=== PATIENT | female | born 1955 | race Caucasian/White ===

== ENCOUNTER 2017-02-18 09:48 | Day surgery (SDC) | payer BC, OTHER ==
[~2017-02-18] VITALS: Ht 176.5 cm; Wt 76.5 kg
[2017-02-18] MEDS ORDERED: METO25TA35 PO (10:17)
[2017-02-18] MEDS ORDERED: HYDR200T PO (10:17)
[2017-02-18] MEDS ORDERED: GABA300C10 PO (10:17)
[2017-02-18] MEDS ORDERED: TRAM50TA2 PO (10:17)
[2017-02-18] MEDS ORDERED: CLON0.5T PO (10:17)
[2017-02-18] MEDS ORDERED: LOSA50TA6 PO (10:17)
[2017-02-18] MEDS ORDERED: ASPI-496 PO (10:17)
[2017-02-18 10:36] VITALS: BP 145/86
[2017-02-18] MEDS ORDERED: LACTATED RINGERS 1,000 ML IV SCH (10:54)
[2017-02-18] MEDS ORDERED: HYDROmorphone 1 MG/ML, 1ML IV PRN (11:30)
[2017-02-18] MEDS ORDERED: hydrALAzine 20 MG/ML, 1ML IV PRN (11:30)
[2017-02-18] MEDS ORDERED: ACETAMINOPHEN 325 MG TABLET PO PRN (11:30)
[2017-02-18] MEDS ORDERED: MEPERIDINE/PF 25MG/0.5ML IVPush PRN (11:30)
[2017-02-18] MEDS ORDERED: KETOROLAC 30 MG/1 ML IV PRN (11:30)
[2017-02-18] MEDS ORDERED: OXYcodone 5 MG/5 ML ORAL.SOL UDC PO PRN (11:30)
[2017-02-18] MEDS ORDERED: MIDAZOLAM 1 MG/ML, 2ML IV PRN (11:30)
[2017-02-18] MEDS ORDERED: FENTANYL PF 100 MCG/2ML IV PRN (11:30)
[2017-02-18] MEDS ORDERED: PROMETHAZINE 25 MG/ML, 1ML IV PRN (11:30)
[2017-02-18] MEDS ORDERED: LABETALOL 5MG/ML, 20ML IV PRN (11:30)
[2017-02-18] MEDS ORDERED: ONDANSETRON 2MG/ML, 2ML IVPush PRN (11:30)
[2017-02-18] MEDS ORDERED: HYDROcodone/APAP 7.5-325MG/15ML UDC PO PRN (11:30)
[2017-02-18 11:33] LABS: BLOOD UREA NITROGEN 10 mg/dL (7-18)
[2017-02-18 11:36] LABS: ASPARTATE AMINO TRANSFERASE 20 U/L (15-37)
[2017-02-18] MEDS ORDERED: PROPOFOL 10 MG/ML, 20ML ONE (12:43)
== END 2017-02-18 14:15 ==
LOC: OUT 09:48
DX: Z09 Encounter for follow-up examination after completed treatment for conditions other than malignant neoplasm (principal); K63.89 Other specified diseases of intestine; I10 Essential (primary) hypertension; G89.29 Other chronic pain; Z87.19 Personal history of other diseases of the digestive system
CPT/HCPCS: 36415; 45346; 80053; 93005; J2704; J7120

== ENCOUNTER 2020-11-13 07:35 | Day surgery (SDC) | payer BC ==
[~2020-11-13] VITALS: Ht 175.3 cm; Wt 72.7 kg
[~2020-11-13 07:35] MED LIST: ASPI-496 PO; CLON0.5T PO; GABA300C10 PO; HYDR200T72 PO; LOSA50TA14 PO; METO25TA35 PO; TRAM50TA2 PO
[2020-11-13 08:07] VITALS: BP 150/87
[2020-11-13] MEDS ORDERED: METO25TA91 PO (08:15)
[2020-11-13] MEDS ORDERED: ASCO100018 PO (08:18)
[2020-11-13] MEDS ORDERED: LANS30CA PO (08:18)
[2020-11-13] MEDS ORDERED: AMLO-150 PO (08:18)
[2020-11-13] MEDS ORDERED: CHOL10003 PO (08:18)
[2020-11-13] MEDS ORDERED: TRAM1TAB6 PO (08:18)
[2020-11-13] MEDS ORDERED: ERGO500017 PO (08:18)
[2020-11-13] MEDS ORDERED: MIDAZOLAM 1 MG/ML, 5ML ONE (08:34)
[2020-11-13] MEDS ORDERED: LIDOCAINE 1%, 20ML ONE (08:34)
[2020-11-13] MEDS ORDERED: FENTANYL PF 100 MCG/2ML ONE (08:34)
[2020-11-13 08:39] LABS: BASOPHILS % (AUTO) 1 % (0-1); EOSINOPHILS % (AUTO) 2 % (1-7); LYMPHOCYTES % (AUTO) 33 % (22-44); MEAN CORPUSCULAR HEMOGLOBIN 30.2 pg (27.0-34.8); MEAN CORPUSCULAR HGB CONC 34.1 g/dL (32.4-35.8); MEAN PLATELET VOLUME 7.3 fL (7.4-10.4); MONOCYTES % (AUTO) 5 % (2-9); NEUTROPHILS % (AUTO) 59 % (42-75); PLATELET COUNT 266 x10^3/uL (130-400); RED CELL DISTRIBUTION WIDTH 12.3 % (9.6-15.2)
[2020-11-13 08:45] LABS: MD NO
[2020-11-13 08:52] LABS: ANION GAP 5 mmol/L (5-15); CALCIUM 9.2 mg/dL (8.5-10.1); CHLORIDE 110 mmol/L (98-107); CREATININE 0.96 mg/dL (0.55-1.02)
== END 2020-11-13 14:10 | disposition home or self-care (01) ==
LOC: CACL 07:35
PROVIDERS: ATTEND Internal Medicine Cardiovascular Disease
DX: R07.9 Chest pain, unspecified (principal); I10 Essential (primary) hypertension; L93.2 Other local lupus erythematosus; E78.5 Hyperlipidemia, unspecified; E66.3 Overweight; Z68.24 Body mass index [BMI] 24.0-24.9, adult; Z79.82 Long term (current) use of aspirin; Z79.891 Long term (current) use of opiate analgesic; Z79.899 Other long term (current) drug therapy; Z88.2 Allergy status to sulfonamides; Z88.8 Allergy status to other drugs, medicaments and biological substances; Z98.890 Other specified postprocedural states; Z83.3 Family history of diabetes mellitus; Z82.49 Family history of ischemic heart disease and other diseases of the circulatory system; Z80.0 Family history of malignant neoplasm of digestive organs
CPT/HCPCS: 36415; 80048; 85025; 93458; 99156; 99157; C1760; C1769; C1894; J2250; J3010; Q9967

== ENCOUNTER → 2020-12-04 | Outpatient (CLI) | payer BC ==
[~2020-12-04] MED LIST changes: +AMLO-150 PO; +ASCO100018 PO; +CHOL10003 PO; +ERGO500017 PO; +LANS30CA PO; +METO25TA91 PO; +TRAM1TAB6 PO
== END | disposition home or self-care (01) ==
LOC: CFH 14:32
PROVIDERS: ATTEND Internal Medicine Cardiovascular Disease
DX: I36.1 Nonrheumatic tricuspid (valve) insufficiency (principal); I10 Essential (primary) hypertension; I31.3 Pericardial effusion (noninflammatory)
CPT/HCPCS: 93306